=== PATIENT | male | born 1960 | race Caucasian/White ===

== ENCOUNTER → 2020-06-06 15:50 | Outpatient (CLI) | payer BC, SELFPAY ==
[2020-06-06] MEDS: COVID-19 VACC, Ad26(JANSSEN)/PF 0.5 ML IM (16:06)
== END ==
PROVIDERS: PCP Family Medicine; Visit Provider Internal Medicine
DX: Z23 Encounter for immunization (principal)
CPT/HCPCS: 0031A; 91303